=== PATIENT | female | born 1965 | race Two or more races ===

== ENCOUNTER 2017-04-10 14:39 | Emergency (ER) | payer SELFPAY ==
[~2017-04-10] VITALS: Ht 154.9 cm; Wt 63.5 kg
[~2017-04-10 14:39] MED LIST: BACTRIM DS TAB1 EAC1 ORAL; KEFLEX500 MG ORAL; NKM
[2017-04-10] MEDS: Lidocaine 1% 10mg/ml/Epi 0.005mg/ml 30ml vial INJ ONE ×2 (14:54→14:57)
[2017-04-10 15:40] VITALS: BP 148/87
[2017-04-10 15:41] VITALS: BP 148/87
--- NOTE | 2017-04-10 19:22 | Emergency Room Report ---
History of Present Illness General Chief Complaint: Laceration Source: Patient Present Illness HPI The patient is a 51-year-old female presenting for facial laceration. She states that she tripped and hit her head on a table today. She did not fall down or lose consciousness. She noticed pain and bleeding to the right upper for head. Pain is a 2/10 dull ache. Does not radiate. Worse with touch. Last tetanus shot within 10 years. She denies any other symptoms including nausea, vomiting, dizziness, blurred vision, neck pain Allergies: Coded Allergies: No Known Allergies (Unverified , 10/16/13) Patient History Past Medical History: see triage record Pertinent Family History: none Reviewed Nursing Documentation: PMH: Agreed, PSxH: Agreed Nursing Documentation-PMH Past Medical History: No Stated History Review of Systems All Other Systems: negative except mentioned in HPI Physical Exam Vital Signs Date Time Temp Pulse Resp B/P (MAP) Pulse Ox O2 Delivery O2 Flow Rate FiO2 04/10/17 14:42 97.5 72 20 137/86 99 Room Air Sp02 EP Interpretation: reviewed, normal General Appearance: no apparent distress, alert, GCS 15, non-toxic Head: normocephalic, other - R forehead laceration Eyes: bilateral eye normal inspection, bilateral eye PERRL ENT: hearing grossly normal, normal pharynx, no angioedema, normal voice Neck: full range of motion, no bony tend, supple/symm/no masses Respiratory: chest non-tender, lungs clear, normal breath sounds, speaking full sentences Musculoskeletal: back normal, gait/station normal, normal range of motion, non- tender Neurologic: alert, oriented x3, responsive, motor strength/tone normal, sensory intact, speech normal Psychiatric: judgement/insight normal, memory normal, mood/affect normal, no suicidal/homicidal ideation Skin: normal color, no rash, warm/dry, well hydrated, laceration - R forehead 3cm linear laceration Lymphatic: no adenopathy Procedures Laceration/Wound Repair Laceration/Wound Repair : Consent: Verbal Wound Location: face Wound's Depth, Shape: into muscle, linear Wound Length (cm): 3 Wound Explored: clean Irrigated w/ Saline (ccs): 50 Betadine Prep?: Yes Anesthesia: 1% Lidocaine, Lidocaine w/ Epi Volume Anesthetic (ccs): 4 Wound Debrided: minimal Wound Repaired With: sutures Suture Size/Type: 6:0, nylon Number of Sutures: 6 Layer Closure?: Yes Deep Layer Suture Size/Type: 5:0, chromic Number Deep Layer Sutures: 2 Sterile Dressing Applied?: Yes Splint Applied?: No Sling Applied?: No Patient Tolerated: Well Complications: None Medical Decision Making PA Attestation Dr. Stallworth is my supervising physician. Patient management was discussed with my supervising physician Diagnostic Impression: Primary Impression: Facial laceration Qualified Codes: S01.81XA - Laceration without foreign body of other part of head, initial encounter ER Course The patient is a 51-year-old female presenting for facial laceration Ddx considered include but not limited to fracture, tendon/ligament injury, concussion, avulsion, nerve damage PE: No apparent distress There is a 3 cm linear laceration to the right upper for head with minimal bleeding. No crepitus. No ecchymosis The wound was irrigated with normal saline and cleaned with betadine. A 27g needle was used to administer 4mL of lidocaine w. Epi for local anasthesia. 2 deep sutures were placed with 5-0 absorbable. 6 sutures were placed with 6-0 Nylon. The wound was well approximated and the patient tolerated the procedure well. The wound was then cleaned and dressing was applied. The patient will keep the wound clean and dry. She is given suture care instructions. She will have sutures removed by your primary doctor or will return in 5-7 days. Last Vital Signs Date Time Temp Pulse Resp B/P (MAP) Pulse Ox O2 Delivery O2 Flow Rate FiO2 04/10/17 15:41 97.5 69 16 148/87 97 Room Air Status: improved Disposition: HOME, SELF-CARE Condition: Improved Patient Instructions: Facial Laceration Additional Instructions: I discussed my findings with the patient. All questions and concerns have been answered. Treatment and medication compliance have been addressed. I advised the patient that they need to follow up with PMD in 7 days for wound check and suture removal. If you are unable to see PMD, return to the ED in 7 days. Return to ED if pain remains or worsens, you notice discharge from the wound, the wound continues to bleed, the suture/s fall out, you notice a fever or chills, or for any reason. Patient is advised to keep the wound clean. Patient verbalized understanding of discharge instructions. LINA MCALLISTER Apr 10, 2017 19:22
== END 2017-04-10 15:43 | disposition home or self-care (01) ==
LOC: EMR 15:10
DX: S01.81XA Laceration without foreign body of other part of head, initial encounter (principal); W01.0XXA Fall on same level from slipping, tripping and stumbling without subsequent striking against object, initial encounter; Y92.9 Unspecified place or not applicable
CPT/HCPCS: 99284

== ENCOUNTER 2017-04-17 12:19 | Emergency (ER) | payer SELFPAY ==
[~2017-04-17] VITALS: Ht 154.9 cm; Wt 50.3 kg
[2017-04-17 12:36] VITALS: BP 125/73
[2017-04-17 13:16] VITALS: BP 125/73
--- NOTE | 2017-04-17 15:16 | Emergency Room Report ---
History of Present Illness General Chief Complaint: General Complaint Source: Patient Present Illness HPI The patient is a 51-year-old female presenting for suture removal. She was seen in this emergency department one week prior for facial laceration. Sutures were placed. She denies any complications. She denies any symptoms including pain, bleeding, fever, rash Allergies: Coded Allergies: No Known Allergies (Unverified , 10/16/13) Patient History Past Medical History: see triage record Pertinent Family History: none Reviewed Nursing Documentation: PMH: Agreed, PSxH: Agreed Nursing Documentation-PMH Past Medical History: No Stated History Review of Systems All Other Systems: negative except mentioned in HPI Physical Exam Vital Signs Date Time Temp Pulse Resp B/P (MAP) Pulse Ox O2 Delivery O2 Flow Rate FiO2 04/17/17 12:36 98.8 16 125/73 99 Room Air 04/17/17 12:36 69 Sp02 EP Interpretation: reviewed, normal General Appearance: no apparent distress, alert, GCS 15, non-toxic Head: normocephalic, atraumatic Eyes: bilateral eye normal inspection, bilateral eye PERRL ENT: hearing grossly normal, normal pharynx, no angioedema, normal voice Neck: full range of motion, supple/symm/no masses Musculoskeletal: back normal, gait/station normal, normal range of motion, non- tender Neurologic: alert, oriented x3, responsive, motor strength/tone normal, sensory intact, speech normal Psychiatric: judgement/insight normal, memory normal, mood/affect normal, no suicidal/homicidal ideation Skin: normal color, warm/dry, well hydrated, wd healing/no infection noted Medical Decision Making PA Attestation Dr. Waters is my supervising physician. Patient management was discussed with my supervising physician Diagnostic Impression: Primary Impression: Visit for suture removal Additional Impression: Encounter for wound re-check ER Course The patient is a 51-year-old female presenting for suture removal. Differential diagnosis considered: Wound infection, nonhealing wound, cellulitis , abscess PE: NAD. AFebrile. Suture removal: all simple interrupted sutures were removed without complication. No bleeding or discharge. Wound is well approximated. No surrounding erythema. The patient continued to keep the wound clean and dry. ER precautions given Last Vital Signs Date Time Temp Pulse Resp B/P (MAP) Pulse Ox O2 Delivery O2 Flow Rate FiO2 1/19/18 13:16 98.8 78 16 125/73 99 Room Air Status: improved Disposition: HOME, SELF-CARE Condition: Improved Patient Instructions: Suture Removal, Care After Additional Instructions: I discussed my findings with the patient. All questions and concerns have been answered. Treatment and medication compliance have been addressed. I advised the patient that they need to follow up with PMD in 3-5 days. Return to ED if symptoms worsen, new symptoms arise, or if needed for any reason. Patient verbalized understanding of discharge instructions. LINA MCALLISTER Apr 17, 2017 15:16
== END 2017-04-17 13:19 | disposition home or self-care (01) ==
LOC: EMR 13:05
DX: Z48.02 Encounter for removal of sutures (principal)
CPT/HCPCS: 99281